=== PATIENT | male | born 1960 | race Asian ===

== ENCOUNTER 2024-05-16 19:59 | Emergency (ER) | payer OTHER ==
[~2024-05-16] VITALS: Ht 182.9 cm; Wt 99.8 kg
[2024-05-16] MEDS ORDERED: IBUPROFEN 600 MG TABLET ONE (20:48)
[2024-05-16] MEDS ORDERED: ACETAMINOPHEN ES 500 MG TABLET ONE (20:48)
[2024-05-16] MEDS: IBUPROFEN 600 MG TABLET PO ONE (20:48)
[2024-05-16] MEDS: ACETAMINOPHEN ES 500 MG TABLET PO ONE (20:49)
[2024-05-16 20:54] VITALS: TEMP 98.7
[2024-05-16] MEDS ORDERED: IBUP-1490 PO (21:22)
[2024-05-16 21:32] VITALS: BP 158/88; O2SAT 99
== END 2024-05-16 21:33 | disposition home or self-care (01) ==
LOC: ER 20:13
DX: S20.219A Contusion of unspecified front wall of thorax, initial encounter (principal); S13.4XXA Sprain of ligaments of cervical spine, initial encounter; E11.9 Type 2 diabetes mellitus without complications; E78.5 Hyperlipidemia, unspecified; I10 Essential (primary) hypertension; V43.52XA Car driver injured in collision with other type car in traffic accident, initial encounter; Y93.89 Activity, other specified; Y92.488 Other paved roadways as the place of occurrence of the external cause; Y99.8 Other external cause status
CPT/HCPCS: 71250-TC; 72125-TC